=== PATIENT | male | born 1985 | race African-American/Black ===

== ENCOUNTER 2018-04-13 07:39 | Emergency (ER) | payer MEDICARE, OTHER ==
--- NOTE | 2018-04-13 08:48 | ED ---
General Adult HPI - General Chief complaint: Alcohol Stated complaint: ETOH Time Seen by Provider: 04/13/18 07:40 Source: EMS, RN notes reviewed, old records reviewed Mode of arrival: EMS Limitations: altered mental status - History of Present Illness Initial comments: This is a 33-year-old male to the ER for evaluation today. This patient's presenting in regards to positive unresponsiveness, known history of drinking today. Patient is responsive upon questioning. Presents again nurse regarding patient's responsive ability. Patient denies any other drugs or alcohol. No significant medical history, patient denies any complaints - Related Data Allergies Allergy/AdvReac Type Severity Reaction Status Date / Time No Known Allergies Allergy Verified 04/13/18 07:55 Review of Systems ROS Statement: Those systems with pertinent positive or pertinent negative responses have been documented in the HPI. ROS Other: All systems not noted in ROS Statement are negative. Past Medical History Past Medical History: Unable to Obtain History of Any Multi-Drug Resistant Organisms: Unobtainable Past Surgical History: Unable to Obtain Past Psychological History: Unable to Obtain Smoking Status: Unknown if ever smoked Past Alcohol Use History: Heavy Past Drug Use History: Unable to Obtain General Exam Limitations: altered mental status General appearance: alert, in no apparent distress Head exam: Present: atraumatic, normocephalic, normal inspection Eye exam: Present: normal appearance, PERRL, EOMI. Absent: scleral icterus, conjunctival injection, periorbital swelling ENT exam: Present: normal exam, mucous membranes moist Neck exam: Present: normal inspection. Absent: tenderness, meningismus, lymphadenopathy Respiratory exam: Present: normal lung sounds bilaterally. Absent: respiratory distress, wheezes, rales, rhonchi, stridor Cardiovascular Exam: Present: regular rate, normal rhythm, normal heart sounds. Absent: systolic murmur, diastolic murmur, rubs, gallop, clicks GI/Abdominal exam: Present: soft, normal bowel sounds. Absent: distended, tenderness, guarding, rebound, rigid Extremities exam: Present: normal inspection, full ROM, normal capillary refill. Absent: tenderness, pedal edema, joint swelling, calf tenderness Back exam: Present: normal inspection Neurological exam: Present: alert, oriented X3, CN II-XII intact Psychiatric exam: Present: normal affect, normal mood Skin exam: Present: warm, dry, intact, normal color. Absent: rash Course Vital Signs 04/13/18 07:51 Temperature 97.6 F Pulse Rate 108 H Respiratory 16 Rate Blood Pressure 152/93 O2 Sat by Pulse 95 Oximetry - Reevaluation(s) Reevaluation #1: 04/13/18 08:47 Patient continues to sleep, he is arousable Medical Decision Making - Medical Decision Making 33 male the ER for evaluation. Patient has positive EtOH intoxication. Patient 's awake and alert, able to converse without difficulty. Patient can be discharged home Disposition Clinical Impression: Alcoholic intoxication Disposition: HOME SELF-CARE Condition: Good Instructions: Alcohol Intoxication (ED) Is patient prescribed a controlled substance at d/c from ED?: No Referrals: None,Stated [Primary Care Provider] - 1-2 days
[2018-04-13 09:01] VITALS: RESP 18
[2018-04-13 13:57] VITALS: BP 196/94; PULSE 106; TEMP 98.2
== END 2018-04-13 14:03 | disposition home or self-care (01) ==
LOC: EC 07:39
DX: F10.120 Alcohol abuse with intoxication, uncomplicated (principal)
CPT/HCPCS: 99285